=== PATIENT | male | born 1985 | race Two or more races ===

== ENCOUNTER 2018-07-24 21:29 | Emergency (ER) | payer SELFPAY ==
[~2018-07-24] VITALS: Ht 177.8 cm; Wt 95.3 kg
[2018-07-24 22:36] LABS: Basophils # (auto) 0.1 uL; Basophils % (auto) 1.1 % (0.0-2.0); Eosinophils # (auto) 0.2 uL; Eosinophils % (auto) 2.7 % (0.0-7.0); Hematocrit 46.8 % (41.0-53.0); Hemoglobin 16.3 g/dL (13.5-17.5); Lymphocytes # (auto) 2.9 uL; Lymphocytes % (auto) 38.3 % (10.0-50.0); Mean Corpuscular Hemoglobin 33.2 pg (28.0-32.0); Mean Corpuscular Hgb Conc. 34.7 g/dL (32.0-36.0); Mean Corpuscular Volume 95.8 fL (80.0-100.0); Monocytes # (auto) 0.7 uL; Monocytes % (auto) 9.4 % (0.0-12.0); Neutrophils # (auto) 3.6 uL; Neutrophils % (auto) 48.5 % (37.0-80.0); Nucleated Red Blood Cells % 0.2 %; Platelet Count (auto) 343 10^3/uL (140-450); Red Blood Cells 4.89 10^6/uL (4.5-5.90); Red Cell Distribution Width 12.5 % (11.8-14.3); White Blood Cell 7.5 10^3/uL (4.4-10.8)
[2018-07-24 22:53] LABS: Albumin 4.3 g/dL (3.4-5.0); Anion Gap 3 (5-15); Blood Urea Nitrogen 14 mg/dL (7-18); Calcium 8.2 mg/dL (8.5-10.1); Carbon Dioxide 27 mmol/L (21-32); Chloride 105 mmol/L (98-107); Glucose 113 mg/dL (74-106); Magnesium 2.4 mg/dL (1.6-2.6); Potassium 3.3 mmol/L (3.5-5.1); Sodium 135 mmol/L (136-145)
[2018-07-24 22:59] LABS: Alanine Aminotransferase 127 U/L (16-61); Alkaline Phosphatase 94 U/L (45-117); Aspartate Aminotransferase 70 U/L (15-37); BUN/Creatinine Ratio 17.1; Bilirubin, Total 0.7 mg/dL (0.2-1.0); GFR African American 139 mL/min; GFR Non-African American 115 mL/min; Total Protein 7.7 g/dL (6.4-8.2)
[2018-07-25 01:11] VITALS: BP 143/96
[2018-07-25] MEDS ORDERED: FAMOTIDINE 20 MG TAB PO ONE (02:30)
== END 2018-07-25 02:55 | disposition home or self-care (01) ==
LOC: ER 21:29
DX: K21.0 Gastro-esophageal reflux disease with esophagitis (principal)
CPT/HCPCS: 36415; 71046; 80053; 83735; 84484; 85025; 93005